=== PATIENT | male | born 1965 | race Caucasian/White ===

== ENCOUNTER 2018-11-30 17:24 | Emergency (ER) | payer OTHER, MEDICAID ==
[~2018-11-30] VITALS: Ht 162.6 cm; Wt 60.0 kg
[2018-11-30] MEDS ORDERED: ATOR-2 PO (17:57)
[2018-11-30 18:28] LABS: BASOPHILS # (AUTO) 0.02 x10^3/uL (0-0.1); BASOPHILS % (AUTO) 0 % (0-1); EOSINOPHILS # (AUTO) 0.03 x10^3/uL (0-0.4); EOSINOPHILS % (AUTO) 0 % (1-7); LYMPHOCYTES # (AUTO) 0.41 x10^3/uL (1-3.4); LYMPHOCYTES % (AUTO) 4 % (22-44); MD NO; MEAN CORPUSCULAR HEMOGLOBIN 28.5 pg (27.5-34.5); MEAN CORPUSCULAR HGB CONC 33.9 g/dL (33.2-36.2); MEAN CORPUSCULAR VOLUME 84.2 fL (81-97); MEAN PLATELET VOLUME 7.1 fL (7.4-10.4); MONOCYTES # (AUTO) 0.44 x10^3/uL (0.2-0.8); MONOCYTES % (AUTO) 4 % (2-9); NEUTROPHILS # (AUTO) 10.82 x10^3/uL (1.8-6.8); NEUTROPHILS % (AUTO) 92 % (42-75); PLATELET COUNT 222 x10^3/uL (130-400); RED BLOOD COUNT 4.93 x10^6/uL (4.38-5.82); RED CELL DISTRIBUTION WIDTH 13.4 % (9.4-14.8)
[2018-11-30] MEDS ORDERED: SODIUM CHLORIDE 0.9% 1,000ML IVBOLUS ONE (18:30)
[2018-11-30] MEDS ORDERED: SODIUM CHLORIDE FLUSH 10ML SYR IVF ONE (18:30)
[2018-11-30 18:40] LABS: ALBUMIN 3.9 g/dL (3.4-5.0); ANION GAP 4 mmol/L (5-15); CALCIUM 8.6 mg/dL (8.5-10.1); CHLORIDE 105 mmol/L (98-107); CREATININE 1.02 mg/dL (0.7-1.3)
[2018-11-30 19:05] VITALS: BP 105/50
--- NOTE | 2018-11-30 19:05 | NUR ---
PT REPORTS "FEELING MUCH BETTER". DENIES DIZZINESS/NAUSEA/WEAKNESS. POC IS DC. IV DC'D. PT OFF MONITORING AT THIS TIME AND ALLOWED TO DRESS. AWAITING DC INSTRUCTIONS
--- NOTE | 2018-11-30 19:25 | NUR ---
DC EDUCATION PROVIDED, PT DEMONSTRATES UNDERSTANDING. PT TRANSFERED SELF FROM GURNEY TO WHEELCHAIR WO DIFFICULTY. WHEELED TO DC BY RN. [employer] PROVIDED FOR SAFE TRANSPORT HOME.
== END 2018-11-30 19:27 | disposition home or self-care (01) ==
LOC: ED 17:52
DX: R55 Syncope and collapse (principal)
CPT/HCPCS: 36415; 80048; 82040; 85025; 93005; 99284; J7030